=== PATIENT | female | born 1975 | race Caucasian/White ===

== ENCOUNTER → 2019-09-08 13:28 | Outpatient (CLI) | payer OTHER, SELFPAY ==
--- NOTE | ~2019-09-08 | US_ITS ---
EXAMINATION: US OB transvaginal DATE: 09/08/2019 14:03 INDICATION: First trimester dating TECHNIQUE: Real-time pelvic transabdominal and transvaginal ultrasound was performed. COMPARISON: None. FINDINGS: The uterus measures 8.5 x 5.1 x 7.9 cm. There is a bicornuate versus septate uterus. There is an intrauterine gestational sac in the left forearm. A yolk sac is identified. The crown ru mp length measures 5 mm , which correlates with an estimated gestational age of 6 weeks and 1 day(s) (+/-) 4 day(s). No heart rate is yet detectable. The right ovary measures 2.9 x 1.3 x 2.5 cm. The left ovary measures 3.2 x 2.0 x 3.0 cm. There is no free fluid in the pelvis. IMPRESSION: 1. Intrauterine within the left horn of a bicornuate or septate uterus with an estimated ge stational age of 6 weeks and 1 day(s) (+/-) 4 day(s) and an estimated delivery date of 05/02/2020. Fet al heart tones not definitely seen which could be related to early . Reviewed, dictated and finalized at location A. [employer] IMPRESSION: 1. Intrauterine within the left horn of a bicornuate or septate uteru s with an estimated gestational age of 6 weeks and 1 day(s) (+/-) 4 day(s) and an estimated delivery date of 05/02/2020. heart tones not definitely seen which could be related to early .
== END ==
PROVIDERS: Visit Provider Obstetrics & Gynecology
DX: O26.841 Uterine size-date discrepancy, first trimester (principal); Z3A.01 Less than 8 weeks gestation of pregnancy
CPT/HCPCS: 76817